=== PATIENT | female | born 1965 | race Caucasian/White ===

== ENCOUNTER 2022-01-02 13:25 | Inpatient (IN) ==
[2022-01-02] MEDS ORDERED: SODIUM CHLORIDE 0.9% 1,000 ML IV STA (14:27)
[2022-01-02 15:23] LABS: Basophils % 0.5 % (0.0-0.8); Eosinophils # 0.1 10*3/uL (0.0-0.87); Eosinophils % 1.4 % (0.00-10.9); Hemoglobin 12.2 GM/DL (12.0-16.0); Immature Granulocytes % 0.3 %; Immature Granulocytes Absolute 0.01 #; Lymphocytes # 0.9 10*3/uL (1.4-4.0); Lymphocytes % 25.2 % (21.3-54.2); Mean Corpuscular Volume 95.6 FL (87-102); Mean Platelet Volume 10.1 FL (9.6-12.0); Monocytes % 8.2 % (1.7-12.7); Neutrophils % 64.4 % (38.7-73.9); Platelet Count 82 T/CUMM (130-400); Red Blood Count 3.87 MC/CUMM (3.8-5.5); Red Cell Distribution Width 14.2 % (9.3-17.3); White Blood Count 3.7 T/CUMM (4-12)
[2022-01-02 15:41] LABS: Albumin 2.7 G/DL (3.4-5.0); Bilirubin,Total 0.5 MG/DL (0.20-1.00); Calcium 8.6 MG/DL (8.5-10.1); Osmolality,Calculated 277.5 MOS/KG (273-304); Potassium 3.8 MMOL/L (3.5-5.1); Total Protein 6.6 G/DL (6.4-8.2)
[2022-01-02] MEDS ORDERED: hydrALAZINE 20 MG/1 ML VIAL IV PRN (17:19)
[2022-01-02] MEDS ORDERED: GLUCAGON 1 MG VIAL IM PRN (17:19)
[2022-01-02] MEDS ORDERED: ONDANSETRON 4 MG/2 ML VIAL IV PRN (17:19)
[2022-01-02] MEDS ORDERED: ALBUTEROL 2.5 MG/3 ML NEB RESP TX PRN (17:19)
[2022-01-02] MEDS ORDERED: ACETAMINOPHEN 325 MG TABLET PO PRN (17:19)
[2022-01-02] MEDS ORDERED: HYDROCORTISONE 2.5% CREAM 30 GM TUBE TOP PRN (17:22)
[2022-01-02] MEDS ORDERED: DEXTROSE 10% 250 ML BAG IV PRN (17:24)
[2022-01-02] MEDS: SODIUM CHLORIDE 0.9% 1,000 ML IV SCH (23:07)
[2022-01-02] MEDS ORDERED: hydrOXYzine HCL 25 MG TABLET PO PRN (23:12)
[2022-01-02] MEDS: BACILLUS COAGULANS CAPLET PO SCH (23:16)
[2022-01-02] MEDS: CLINDAMYCIN 300 MG CAPSULE PO SCH (23:16)
[2022-01-02] MEDS: clonazePAM 0.5 MG TABLET PO SCH (23:47)
[2022-01-02] MEDS: traZODone 50 MG TABLET PO SCH (23:48)
[2022-01-02] MEDS: GABAPENTIN 600 MG TABLET PO SCH (23:48)
[2022-01-03 05:34] LABS: Basophils % 0.7 % (0.0-0.8); Eosinophils # 0.1 10*3/uL (0.0-0.87); Eosinophils % 1.7 % (0.00-10.9); Hemoglobin 10.9 GM/DL (12.0-16.0); Lymphocytes # 1.1 10*3/uL (1.4-4.0); Lymphocytes % 35.5 % (21.3-54.2); Mean Corpuscular Volume 93.8 FL (87-102); Mean Platelet Volume 10.9 FL (9.6-12.0); Monocytes % 9.8 % (1.7-12.7); Neutrophils % 52.3 % (38.7-73.9); Platelet Count 78 T/CUMM (130-400); Red Blood Count 3.52 MC/CUMM (3.8-5.5); Red Cell Distribution Width 14.2 % (9.3-17.3)
[2022-01-03 06:05] LABS: Alanine Aminotransferase 52 U/L (13-56); Albumin 2.2 G/DL (3.4-5.0); Alkaline Phosphatase 75 U/L (45-117); Aspartate Amino Transferase 47 U/L (0-37); Bilirubin,Total < 0.39 MG/DL (0.20-1.00); Blood Urea Nitrogen 13 MG/DL (7-18); Carbon Dioxide 25 MMOL/L (21-32); Estimated Glom Filtration Rate 82 ML/MIN; Glucose 98 MG/DL (74-106); HDL Cholesterol 27 MG/DL (40-60); Osmolality,Calculated 276.5 MOS/KG (273-304); Potassium 3.8 MMOL/L (3.5-5.1); Risk Ratio 4.11; Sodium 139 MMOL/L (136-145); Total Protein 5.7 G/DL (6.4-8.2); Triglycerides 117 MG/DL (2-150); VLDL Cholesterol 23.4 MG/DL
[2022-01-03 06:18] LABS: Platelet Estimate Decreased
[2022-01-03] MEDS: CLINDAMYCIN 300 MG CAPSULE PO SCH ×3 (06:18→21:50)
[2022-01-03] MEDS: clonazePAM 0.5 MG TABLET PO SCH ×3 (08:56→20:52)
[2022-01-03] MEDS: traZODone 50 MG TABLET PO SCH ×2 (08:57→20:52)
[2022-01-03] MEDS: OLANZapine 5 MG TABLET PO SCH (08:57)
[2022-01-03] MEDS: FLUoxetine 20 MG CAPSULE PO SCH (08:57)
[2022-01-03] MEDS: PANTOPRAZOLE 40 MG TABLET PO SCH (08:58)
[2022-01-03] MEDS: BACILLUS COAGULANS CAPLET PO SCH ×2 (08:58→20:52)
[2022-01-03] MEDS: GABAPENTIN 600 MG TABLET PO SCH ×2 (09:06→20:51)
[2022-01-03] MEDS: predniSONE 20 MG TABLET PO SCH (11:11)
[2022-01-03] MEDS: SODIUM CHLORIDE 0.9% 1,000 ML IV SCH (14:47)
[2022-01-04] MEDS: CLINDAMYCIN 300 MG CAPSULE PO SCH ×3 (06:29→21:58)
[2022-01-04] MEDS: predniSONE 20 MG TABLET PO SCH (08:32)
[2022-01-04] MEDS: OLANZapine 5 MG TABLET PO SCH (08:33)
[2022-01-04] MEDS: traZODone 50 MG TABLET PO SCH ×2 (08:33→20:39)
[2022-01-04] MEDS: GABAPENTIN 600 MG TABLET PO SCH ×2 (08:33→20:38)
[2022-01-04] MEDS: BACILLUS COAGULANS CAPLET PO SCH ×2 (08:34→20:39)
[2022-01-04] MEDS: clonazePAM 0.5 MG TABLET PO SCH ×3 (08:34→20:39)
[2022-01-04] MEDS: FLUoxetine 20 MG CAPSULE PO SCH (08:34)
[2022-01-04] MEDS: PANTOPRAZOLE 40 MG TABLET PO SCH (08:34)
[2022-01-04] MEDS: SODIUM CHLORIDE 0.9% 1,000 ML IV SCH (08:40)
[2022-01-04 10:17] LABS: Basophils % 0.2 % (0.0-0.8); Eosinophils # 0.1 10*3/uL (0.0-0.87); Eosinophils % 1.5 % (0.00-10.9); Hemoglobin 11.2 GM/DL (12.0-16.0); Immature Granulocytes % 0.2 %; Immature Granulocytes Absolute 0.01 #; Lymphocytes % 22.3 % (21.3-54.2); Mean Corpuscular HGB Conc 32.9 GM/DL (32-36); Mean Corpuscular Volume 94.7 FL (87-102); Mean Platelet Volume 10.9 FL (9.6-12.0); Monocytes % 9.4 % (1.7-12.7); Neutrophils % 66.4 % (38.7-73.9); Red Blood Count 3.59 MC/CUMM (3.8-5.5); White Blood Count 4.6 T/CUMM (4-12)
[2022-01-04 10:19] LABS: Platelet Count 71 T/CUMM (130-400)
[2022-01-04 10:29] LABS: Calcium 7.6 MG/DL (8.5-10.1); Osmolality,Calculated 283.1 MOS/KG (273-304); Potassium 3.5 MMOL/L (3.5-5.1)
[2022-01-05 05:44] LABS: Basophils % 0.3 % (0.0-0.8); Eosinophils % 0.8 % (0.00-10.9); Hematocrit 31.1 VOL% (35.7-47.0); Hemoglobin 10.3 GM/DL (12.0-16.0); Immature Granulocytes % 0.5 %; Immature Granulocytes Absolute 0.02 #; Lymphocytes % 25.4 % (21.3-54.2); Mean Corpuscular HGB Conc 33.1 GM/DL (32-36); Mean Corpuscular Volume 96.6 FL (87-102); Monocytes % 9.3 % (1.7-12.7); Neutrophils % 63.7 % (38.7-73.9); Red Blood Count 3.22 MC/CUMM (3.8-5.5); Red Cell Distribution Width 14.5 % (9.3-17.3); White Blood Count 3.8 T/CUMM (4-12)
[2022-01-05 05:53] LABS: Platelet Count 74 T/CUMM (130-400)
[2022-01-05 06:00] LABS: Albumin 2.4 G/DL (3.4-5.0); Bilirubin,Total 1.1 MG/DL (0.20-1.00); Calcium 7.8 MG/DL (8.5-10.1); Osmolality,Calculated 287.6 MOS/KG (273-304); Potassium 3.8 MMOL/L (3.5-5.1)
[2022-01-05 06:11] LABS: Hypochromia Slight; Microcytosis Slight; Platelet Estimate Decreased
[2022-01-05] MEDS: CLINDAMYCIN 300 MG CAPSULE PO SCH ×3 (06:28→22:20)
[2022-01-05] MEDS: BACILLUS COAGULANS CAPLET PO SCH ×2 (09:10→22:19)
[2022-01-05] MEDS: traZODone 50 MG TABLET PO SCH ×2 (09:11→22:19)
[2022-01-05] MEDS: clonazePAM 0.5 MG TABLET PO SCH ×3 (09:12→22:19)
[2022-01-05] MEDS: GABAPENTIN 600 MG TABLET PO SCH ×2 (09:13→22:19)
[2022-01-05] MEDS: predniSONE 20 MG TABLET PO SCH (09:13)
[2022-01-05] MEDS: FLUoxetine 20 MG CAPSULE PO SCH (09:14)
[2022-01-05] MEDS: PANTOPRAZOLE 40 MG TABLET PO SCH ×2 (09:14→22:20)
[2022-01-05] MEDS: OLANZapine 5 MG TABLET PO SCH (09:15)
[2022-01-05 12:48] LABS: Cyclic Citrull Peptide Interp Negative
[2022-01-05 13:54] LABS: HIV Antigen/Antibody Result Nonreactive (Nonreactive)
[2022-01-05 14:02] LABS: Hepatitis B Core IgM Quant 0.14 Index; Hepatitis B Surface Ag Quant 0.18 Index; Hepatitis B Surface Ag Result Non-Reactive (NonReactive); Hepatitis C Virus Ab Quant > 11.00 Index; Hepatitis C Virus Ab Result Reactive (NonReactive)
[2022-01-05] MEDS: ALUMINUM/MAGNES/SIMETH MAX STR 30 ML UDCUP PO PRN (16:10)
[2022-01-05 20:35] LABS: Bacteria,Urine Occasional /HPF (Few); RBC,Urine 1 /HPF (0-4)
[2022-01-05 20:40] LABS: Bilirubin,Urine Negative (Negative); Blood, Urine Negative (Negative); Glucose,Urine (UA) Negative (Negative); Ketones,Urine Negative (Negative); Nitrite,Urine Negative (Negative); Protein,Urine Negative; Urine Appearance Clear (Clear); Urine Color Light Yellow (Yellow); Urine Urobilinogen 0.2 EU/DL (<2.0)
[2022-01-06] MEDS: CLINDAMYCIN 300 MG CAPSULE PO SCH ×3 (05:43→21:21)
[2022-01-06] MEDS: traZODone 50 MG TABLET PO SCH ×2 (09:23→21:20)
[2022-01-06] MEDS: predniSONE 20 MG TABLET PO SCH (09:23)
[2022-01-06] MEDS: OLANZapine 5 MG TABLET PO SCH (09:23)
[2022-01-06] MEDS: PANTOPRAZOLE 40 MG TABLET PO SCH ×2 (09:23→21:21)
[2022-01-06] MEDS: BACILLUS COAGULANS CAPLET PO SCH ×2 (09:23→21:20)
[2022-01-06] MEDS: clonazePAM 0.5 MG TABLET PO SCH ×3 (09:23→21:20)
[2022-01-06] MEDS: GABAPENTIN 600 MG TABLET PO SCH ×2 (09:23→21:21)
[2022-01-06] MEDS: FLUoxetine 20 MG CAPSULE PO SCH (09:23)
[2022-01-06 14:20] LABS: Antinuclear Ab, S 0.3 U
[2022-01-06] MEDS: ALUMINUM/MAGNES/SIMETH MAX STR 30 ML UDCUP PO PRN ×2 (16:25→21:24)
[2022-01-06 18:11] LABS: Myeloperoxidase Antibody < 0.2 U
[2022-01-06] MEDS: SODIUM CHLORIDE 0.9% 1,000 ML IV SCH (19:18)
[2022-01-07] MEDS: CLINDAMYCIN 300 MG CAPSULE PO SCH ×2 (06:12→15:05)
[2022-01-07] MEDS ORDERED: LACTATED RINGERS 1,000 ML IV SCH (06:30)
[2022-01-07] MEDS ORDERED: propofoL 200 MG/20 ML VIAL IV ONE (07:45)
[2022-01-07] MEDS ORDERED: LIDOCAINE 2% 5 ML VIAL ONE (07:45)
[2022-01-07 08:17] LABS: Basophils % 0.4 % (0.0-0.8); Eosinophils # 0.2 10*3/uL (0.0-0.87); Eosinophils % 3.2 % (0.00-10.9); Hematocrit 37.7 VOL% (35.7-47.0); Hemoglobin 12.4 GM/DL (12.0-16.0); Immature Granulocytes % 0.4 %; Immature Granulocytes Absolute 0.02 #; Lymphocytes # 1.7 10*3/uL (1.4-4.0); Lymphocytes % 31.8 % (21.3-54.2); Mean Corpuscular HGB Conc 32.9 GM/DL (32-36); Mean Platelet Volume 10.4 FL (9.6-12.0); Monocytes % 7.4 % (1.7-12.7); Neutrophils % 56.8 % (38.7-73.9); Red Blood Count 3.97 MC/CUMM (3.8-5.5); Red Cell Distribution Width 14.5 % (9.3-17.3); White Blood Count 5.3 T/CUMM (4-12)
[2022-01-07 08:18] LABS: Platelet Count 96 T/CUMM (130-400)
[2022-01-07 08:34] LABS: Albumin 2.8 G/DL (3.4-5.0); Bilirubin,Total 0.4 MG/DL (0.20-1.00); Calcium 8.3 MG/DL (8.5-10.1); Osmolality,Calculated 279.4 MOS/KG (273-304); Potassium 3.9 MMOL/L (3.5-5.1)
[2022-01-07] MEDS: traZODone 50 MG TABLET PO SCH (09:18)
[2022-01-07] MEDS: BACILLUS COAGULANS CAPLET PO SCH (09:18)
[2022-01-07] MEDS: OLANZapine 5 MG TABLET PO SCH (09:18)
[2022-01-07] MEDS: GABAPENTIN 600 MG TABLET PO SCH (09:18)
[2022-01-07] MEDS: FLUoxetine 20 MG CAPSULE PO SCH (09:18)
[2022-01-07] MEDS: clonazePAM 0.5 MG TABLET PO SCH ×2 (09:18→15:03)
[2022-01-07] MEDS: predniSONE 20 MG TABLET PO SCH (09:19)
[2022-01-07] MEDS: PANTOPRAZOLE 40 MG TABLET PO SCH (09:19)
[2022-01-07 10:11] LABS: Ehrlichia Chaffeensis (HME)IgG <1:64 titer (<1:64)
[2022-01-07 12:01] VITALS: BP 113/56
[2022-01-08 11:56] LABS: Cryoglobulin, S Negative %ppt (Negative)
== END 2022-01-07 15:07 | disposition home or self-care (01) | DRG 841 ==
LOC: N.EDINP 13:25 → N.ED 13:25 → SUATTDRO 17:19 → N.5E 20:53 → SUATTDRO 01-05 09:12
PROVIDERS: ADMIT Internal Medicine; ATTEND Internal Medicine